=== PATIENT | male | born 1950 | race Caucasian/White ===

== ENCOUNTER 2025-05-11 06:32 | Day surgery (SDC) | payer BC, SELFPAY ==
[2025-05-11 09:57] LABS: Glucose - Point of Care 127 mg/dl (70-99)
== END 2025-05-11 11:39 | disposition home or self-care (01) ==
LOC: GI 06:32
PROVIDERS: ATTENDING PHYSICIAN Internal Medicine Gastroenterology; FAMILY PHYSICIAN Internal Medicine
DX: Z12.11 Encounter for screening for malignant neoplasm of colon (principal); K64.8 Other hemorrhoids; K57.30 Diverticulosis of large intestine without perforation or abscess without bleeding; D12.2 Benign neoplasm of ascending colon; Z86.0100 Personal history of colon polyps, unspecified
CPT/HCPCS: 45380; 82962; 88305